=== PATIENT | female | born 1960 | race Caucasian/White ===

== ENCOUNTER 2018-02-27 07:51 | Day surgery (SDC) | payer OTHER ==
[2018-02-27] MEDS ORDERED: MIDAZOLAM 1 MG/ML 2 ML INJ (11:07)
[2018-02-27] MEDS ORDERED: CEFAZOLIN 1 GM INJ (11:07)
[2018-02-27] MEDS ORDERED: PROPOFOL 20 ML (11:07)
[2018-02-27] MEDS ORDERED: FENTAnyl 50 MCG/ML VIAL (11:07)
[2018-02-27] MEDS ORDERED: ROCURONIUM 50 MG INJ (11:07)
[2018-02-27] MEDS ORDERED: LIDOCAINE 1%/EPI 30 ML INJ (11:11)
[2018-02-27] MEDS ORDERED: NEOMYC/POLYMYX/BACIT 30 GM OINT (11:11)
[2018-02-27] MEDS ORDERED: COCAINE 4% 4 ML TOP (11:11)
[2018-02-27] MEDS: BACITRACIN/POLYMYXIN 0.9 GM OINT TOP (11:26)
[2018-02-27] MEDS ORDERED: METOCLOPRAMIDE 10 MG INJ (11:26)
[2018-02-27] MEDS: COCAINE 4% 4 ML TOP (11:26)
[2018-02-27] MEDS ORDERED: DEXAMETHASONE 4 MG/ML 1 ML INJ (11:26)
[2018-02-27] MEDS ORDERED: ONDANSETRON 4 MG INJ (11:26)
[2018-02-27] MEDS ORDERED: OXYCODONE/ACETAMINOPHEN (5/325) TAB PO (11:30)
[2018-02-27] MEDS ORDERED: DIPHENHYDRAMINE 50 MG INJ IV (11:30)
[2018-02-27] MEDS ORDERED: FENTAnyl 50 MCG/ML VIAL IV ×3 (11:30)
[2018-02-27] MEDS ORDERED: ONDANSETRON 4 MG INJ IV (11:30)
[2018-02-27] MEDS ORDERED: LABETALOL HCL 20MG INJ IV (11:30)
[2018-02-27] MEDS ORDERED: METOCLOPRAMIDE 10 MG INJ IV (11:30)
[2018-02-27] MEDS ORDERED: MEPERIDINE 25 MG INJ IV (11:30)
[2018-02-27] MEDS ORDERED: EPHEDrine SULFATE 50 MG/5 ML SYG IV (11:30)
[2018-02-27] MEDS ORDERED: hydrALAzine 20 MG INJ IV (11:30)
[2018-02-27] MEDS ORDERED: HYDROmorphONE 1 MG/5 ML IV SYRINGE IV ×3 (11:30)
[2018-02-27] MEDS ORDERED: LABETALOL HCL 20MG INJ (11:32)
[2018-02-27] MEDS ORDERED: NEOSTIGMINE 3 MG/3 ML SYRINGE (11:57)
[2018-02-27] MEDS ORDERED: GLYCOPYRROLATE 0.4 MG INJ (11:57)
== END 2018-02-27 14:00 | disposition home or self-care (01) ==
LOC: SDS 07:51
DX: J34.2 Deviated nasal septum (principal); J34.3 Hypertrophy of nasal turbinates; I10 Essential (primary) hypertension; E11.9 Type 2 diabetes mellitus without complications
CPT/HCPCS: 30140; 82962; 88300; 93005